=== PATIENT | female | born 2000 | race Caucasian/White ===

== ENCOUNTER → 2021-03-01 | Outpatient (CLI) | payer BC, OTHER ==
[~2021-03-01] MED LIST: COLACE 100MG C100 MG PO; DOCUSATE SODIU100 MG PO; HYDROCODON-ACE1 EAC4 PO; IBUPROFEN600 MG PO; LABETALOL HCL200 MG PO; LORTAB 5-325 M1 EACH PO; PNV PRENATAL P1 EACH PO; TYLENOL325 MG PO
[2021-03-01 15:06] LABS: HEMOGLOBIN 12.3 gm/dl (12.3-15.3); RED BLOOD COUNT 4.32 M/UL (4.00-5.10)
[2021-03-01 15:25] LABS: BUN/CREATININE RATIO 17 (0-10)
== END ==
LOC: GENOP 14:19
PROVIDERS: Obstetrics & Gynecology
DX: Z01.812 Encounter for preprocedural laboratory examination (principal)
CPT/HCPCS: 80053; 81001; 85025

== ENCOUNTER 2021-03-02 05:59 | Inpatient (IN) | payer BC, OTHER ==
[~2021-03-02 05:59] MED LIST changes: -DOCUSATE SODIU100 MG PO; -HYDROCODON-ACE1 EAC4 PO
[2021-03-02] MEDS ORDERED: DOCUSATE SODIU100 MG PO (10:56)
[2021-03-02] MEDS ORDERED: HYDROCODON-ACE1 EAC4 PO (10:56)
[2021-03-02] MEDS ORDERED: IBUPROFEN600 MG PO (10:56)
[2021-03-03 05:53] LABS: HEMOGLOBIN 10.3 gm/dl (12.3-15.3)
[2021-03-04] MEDS ORDERED: TRANDATE 100 M100 MG PO (11:52)
== END 2021-03-04 14:07 | disposition home or self-care (01) | DRG 788 ==
LOC: OB 05:59
PROVIDERS: ADMIT Obstetrics & Gynecology
PROC: 3E0234Z Introduction of Serum, Toxoid and Vaccine into Muscle, Percutaneous Approach (ICD-10-PCS; 2021-03-02)
PROC: 3E02340 Introduction of Influenza Vaccine into Muscle, Percutaneous Approach (ICD-10-PCS; 2021-03-02)
PROC: 10D00Z1 Extraction of Products of Conception, Low, Open Approach (ICD-10-PCS; principal; 2021-03-02 09:15)
DX: O13.4 Gestational [pregnancy-induced] hypertension without significant proteinuria, complicating childbirth (principal); O99.214 Obesity complicating childbirth; E66.01 Morbid (severe) obesity due to excess calories; Z20.822 Contact with and (suspected) exposure to COVID-19; O34.211 Maternal care for low transverse scar from previous cesarean delivery; Z3A.38 38 weeks gestation of pregnancy; Z37.0 Single live birth; Z90.89 Acquired absence of other organs; Z98.890 Other specified postprocedural states; Z82.49 Family history of ischemic heart disease and other diseases of the circulatory system; Z81.8 Family history of other mental and behavioral disorders; Z83.3 Family history of diabetes mellitus; Z83.49 Family history of other endocrine, nutritional and metabolic diseases; Z82.5 Family history of asthma and other chronic lower respiratory diseases; Z23 Encounter for immunization
CPT/HCPCS: 36415; 82800; 85014; 85018; 90686; 90715; C9113; J0690; J1650; J1885; J2274; J2370; J2405; J2590; J3010; J7120; U0002